=== PATIENT | male | born 1985 | race American Indian/Alaskan Native ===

== ENCOUNTER 2021-11-17 17:01 | Emergency (ER) | payer SELFPAY ==
[2021-11-17 19:25] VITALS: BP 127/86
--- NOTE | 2021-11-18 01:23 | Emergency Department Report ---
- General Chief complaint: Skin Rash Stated complaint: RASH/FACE Time Seen by Provider: 11/17/21 22:21 Source: patient Mode of arrival: Ambulatory Limitations: No Limitations - History of Present Illness Initial comments: 32-year-old male presents emerged from complaining of pruritic rash and irritated rash to the face which occurred at the same but been progressively worsening over the past 3 weeks not responding to [id number] treatment which she is attempted. No fever, chills, sweats. No odynophagia or dysphagia. No nausea vomiting. -: Gradual Tetanus Up to Date: no Severity: mild Consistency: constant Improves with: none Worsens with: none Context: none Associated symptoms: denies other symptoms Treatments Prior to Arrival: none - Related Data Previous Rx's Medication Instructions Recorded Last Taken Type Chlorhexidine Gluconate [Hibiclens] 10 ml TP BID #240 liquid 11/18/21 Unknown Rx Ciclopirox 0.77% (Nf) [Loprox 1 applic TP BID #45 gm 11/18/21 Unknown Rx 0.77% (Nf)] cephALEXin [Keflex] 500 mg PO Q8HR #30 cap 11/18/21 Unknown Rx Allergies Allergy/AdvReac Type Severity Reaction Status Date / Time No Known Allergies Allergy Unverified 11/17/21 19:22 Abscess Boil HPI - HPI Chief Complaint: Skin Rash Stated Complaint: RASH/FACE Time Seen by Provider: 11/17/21 22:21 Home Medications: Previous Rx's Medication Instructions Recorded Last Taken Type Chlorhexidine Gluconate [Hibiclens] 10 ml TP BID #240 liquid 11/18/21 Unknown Rx Ciclopirox 0.77% (Nf) [Loprox 1 applic TP BID #45 gm 11/18/21 Unknown Rx 0.77% (Nf)] cephALEXin [Keflex] 500 mg PO Q8HR #30 cap 11/18/21 Unknown Rx Allergies/Adverse Reactions: Allergies Allergy/AdvReac Type Severity Reaction Status Date / Time No Known Allergies Allergy Unverified 11/17/21 19:22 ED Review of Systems ROS: Stated complaint: RASH/FACE Other details as noted in HPI Comment: All other systems reviewed and negative ED Past Medical Hx - Past Medical History Previous Medical History?: No - Surgical History Past Surgical History?: No - Medications Home Medications: Home Medications Medication Instructions Recorded Confirmed Last Taken Type Chlorhexidine Gluconate [Hibiclens] 10 ml TP BID #240 liquid 11/18/21 Unknown Rx Ciclopirox 0.77% (Nf) [Loprox 1 applic TP BID #45 gm 11/18/21 Unknown Rx 0.77% (Nf)] cephALEXin [Keflex] 500 mg PO Q8HR #30 cap 11/18/21 Unknown Rx ED Physical Exam - General Limitations: No Limitations General appearance: alert, in no apparent distress - Head Head exam: Present: atraumatic, normocephalic, other - Expanded Head Exam Expanded 1 - Folliculitis rash with some local cellulitis and several areas macular irregular circular hyperpigmented tinea rash - Eye Eye exam: Present: normal appearance - ENT ENT exam: Present: mucous membranes moist - Neck Neck exam: Present: normal inspection - Respiratory Respiratory exam: Present: normal lung sounds bilaterally. Absent: respiratory distress - Cardiovascular Cardiovascular Exam: Present: regular rate, normal rhythm. Absent: systolic murmur, diastolic murmur, rubs, gallop - GI/Abdominal GI/Abdominal exam: Present: soft, normal bowel sounds - Rectal Rectal exam: Present: deferred - Extremities Exam Extremities exam: Present: normal inspection - Back Exam Back exam: Present: normal inspection - Neurological Exam Neurological exam: Present: alert, oriented X3 - Psychiatric Psychiatric exam: Present: normal affect, normal mood - Skin Skin exam: Present: warm, dry, intact, normal color. Absent: rash ED Course Vital Signs 11/17/21 19:23 Temperature 98.3 F Pulse Rate 69 Respiratory 16 Rate Blood Pressure 127/86 [Right] O2 Sat by Pulse 100 Oximetry Critical care attestation.: If time is entered above; I have spent that time in minutes in the direct care of this critically ill patient, excluding procedure time. ED Disposition Clinical Impression: Tinea corporis, Folliculitis barbae Disposition: HOME / SELF CARE / HOMELESS Is pt being admited?: No Does the pt Need Aspirin: No Condition: Stable Instructions: Body Ringworm, Folliculitis Prescriptions: Chlorhexidine Gluconate [Hibiclens] 10 ml TP BID #240 liquid cephALEXin [Keflex] 500 mg PO Q8HR #30 cap Ciclopirox 0.77% (Nf) [Loprox 0.77% (Nf)] 1 applic TP BID #45 gm Referrals: AMAURY OTERO MD [Primary Care Provider] - 3-5 Days
== END 2021-11-18 01:36 | disposition home or self-care (01) ==
LOC: ED 17:01
DX: B35.4 Tinea corporis (principal); L73.8 Other specified follicular disorders
CPT/HCPCS: 99282